=== PATIENT | male | born 1990 | race African-American/Black ===

== ENCOUNTER 2021-07-04 01:55 | Emergency (ER) | payer MEDICAID ==
[~2021-07-04] VITALS: Ht 182.9 cm; Wt 82.0 kg
[2021-07-04 01:58] VITALS: BP 124/88
== END 2021-07-04 03:35 | disposition left against medical advice (07) ==
LOC: ER 02:15
DX: S01.01XA Laceration without foreign body of scalp, initial encounter (principal); W10.8XXA Fall (on) (from) other stairs and steps, initial encounter; Y93.89 Activity, other specified; Y92.015 Private garage of single-family (private) house as the place of occurrence of the external cause
CPT/HCPCS: 12001; 99284